=== PATIENT | female | born 1995 | race Hispanic/Latino ===

== ENCOUNTER 2024-01-27 10:22 | Emergency (ER) | payer OTHER ==
[~2024-01-27] VITALS: Ht 149.9 cm; Wt 55.1 kg
[2024-01-27 12:53] LABS: HEMATOCRIT 38.4 % (36.0-47.0); HEMOGLOBIN 11.3 g/dl (12.0-15.5); MEAN CORPUSCULAR HEMOGLOBIN 23.1 pg (27.0-33.0); MEAN CORPUSCULAR HGB CONC 29.4 g/dl (32.0-36.5); MEAN CORPUSCULAR VOLUME 78.5 fl (80.0-96.0); PLATELET COUNT, AUTOMATED 232 10^3/uL (150-450); RED BLOOD COUNT 4.89 10^6/uL (4.00-5.40); WHITE BLOOD COUNT 5.8 10^3/uL (4.0-10.0)
[2024-01-27 13:20] LABS: BLOOD UREA NITROGEN 10 MG/DL (9-23); CARBON DIOXIDE LEVEL 28 MMOL/L (20-31); CHLORIDE LEVEL 110 MMOL/L (98-107); CREATININE FOR GFR 0.54 MG/DL (0.55-1.30); GLOMERULAR FILTRATION RATE > 60.0 (>60); GLUCOSE, FASTING 80 MG/DL (60-100); SODIUM LEVEL 144 MMOL/L (136-145)
[2024-01-27 13:35] LABS: HCG, SERUM QUALITATIVE NEGATIVE (NEGATIVE)
[2024-01-27] MEDS: KETOROLAC 30 MG/ML 1ML VIAL IV ONE (13:50)
[2024-01-27] MEDS: NS 1,000 ML IV ONE (13:50)
[2024-01-27 14:15] VITALS: BP 136/73; TEMP 97.3; O2SAT 100
== END 2024-01-27 14:40 | disposition home or self-care (01) ==
LOC: M ED 10:22
DX: N94.4 Primary dysmenorrhea (principal)
CPT/HCPCS: 80048; 84703; 85027; 86850; 86900; 86901; 96361; 96374; 99284; J1885

== ENCOUNTER 2024-04-16 14:17 | Outpatient (CLI) | payer OTHER ==
[~2024-04-16] VITALS: Ht 149.9 cm; Wt 52.7 kg
[~2024-04-16 14:17] MED LIST: ALBUTEROL SULFATE 2.5MG/0.5ML INH NEB SOLN INH PRN; EPINEPHrine INJ 1 MG/ML 1ML AMP IM PRN; diphenhydrAMINE 50MG/ML VIAL IV PRN; methylPREDNISolone 125MG 2ML VIAL IV PRN
[2024-04-16 14:35] VITALS: BP 133/59; O2SAT 99
[2024-04-16] MEDS ORDERED: NS 1,000 ML IV SCH (15:00)
[2024-04-16] MEDS: IRON SUCROSE 25 MG in NS 23.75 ML IV ONE (15:20)
[2024-04-16] MEDS: IRON SUCROSE 200 MG in NS 100 ML OVER 1 HR IV ONE (16:03)
[2024-04-16 16:07] VITALS: BP 113/70; O2SAT 100
[2024-04-16 17:00] VITALS: BP 119/69; O2SAT 100
[2024-04-16 17:20] VITALS: BP 109/59; O2SAT 100
== END 2024-04-16 17:20 | disposition home or self-care (01) ==
LOC: M INFU 14:17
PROVIDERS: ATTEND Family Medicine
DX: D64.9 Anemia, unspecified (principal); Z91.013 Allergy to seafood
CPT/HCPCS: 96365; J1756

== ENCOUNTER 2024-04-23 15:34 | Outpatient (CLI) | payer OTHER ==
[~2024-04-23] VITALS: Ht 149.9 cm; Wt 52.7 kg
[~2024-04-23 15:34] MED LIST changes: +NS 1,000 ML IV SCH
[2024-04-23 16:05] VITALS: BP 122/58; O2SAT 100
[2024-04-23] MEDS: IRON SUCROSE 200 MG in NS 100 ML OVER 1 HR IV ONE (16:18)
[2024-04-23 17:27] VITALS: BP 112/61; O2SAT 95
== END 2024-04-23 17:30 ==
LOC: M INFU 15:34
PROVIDERS: ATTEND Family Medicine
DX: D64.9 Anemia, unspecified (principal)
CPT/HCPCS: 96365; J1756

== ENCOUNTER → 2024-04-30 | Outpatient (CLI) | payer OTHER ==
[~2024-04-30] VITALS: Ht 149.9 cm; Wt 53.6 kg
[2024-04-30 14:55] VITALS: BP 116/63; O2SAT 100
[2024-04-30] MEDS: IRON SUCROSE 200 MG in NS 100 ML IV ONE (15:49)
[2024-04-30 16:48] VITALS: BP 118/63; O2SAT 100
== END ==
LOC: M INFU 14:37
PROVIDERS: ATTEND Family Medicine
DX: D64.9 Anemia, unspecified (principal)
CPT/HCPCS: 96365; J1756

== ENCOUNTER 2024-08-04 06:17 | Day surgery (SDC) | payer OTHER ==
[~2024-08-04] VITALS: Ht 149.9 cm; Wt 53.6 kg
[~2024-08-04 06:17] MED LIST changes: -ALBUTEROL SULFATE 2.5MG/0.5ML INH NEB SOLN INH PRN; -EPINEPHrine INJ 1 MG/ML 1ML AMP IM PRN; +MECL25CH45 PO; -NS 1,000 ML IV SCH; +VITA100093 PO; -diphenhydrAMINE 50MG/ML VIAL IV PRN; -methylPREDNISolone 125MG 2ML VIAL IV PRN
[2024-08-04] MEDS ORDERED: ONDANSETRON 4MG 2ML VIAL As Ordered ONE (06:56)
[2024-08-04] MEDS ORDERED: ROCURONIUM BROMIDE 50MG/5ML VIAL As Ordered ONE (06:56)
[2024-08-04] MEDS ORDERED: KETOROLAC 60MG 2ML VIAL As Ordered ONE (06:56)
[2024-08-04] MEDS ORDERED: SUGAMMADEX SODIUM 500 MG/5 ML VIAL (BRIDION) As Ordered ONE (06:56)
[2024-08-04] MEDS ORDERED: propofoL 200 MG/20 ML VIAL As Ordered ONE (06:56)
[2024-08-04] MEDS ORDERED: LIDOCAINE 2% 100MG/5ML SDV (FOR ANES.) As Ordered ONE (06:56)
[2024-08-04] MEDS ORDERED: fentaNYL 250 MCG/5 ML INJECTION As Ordered ONE (07:00)
[2024-08-04] MEDS: SCOPOLAMINE 1MG TRANSDERMAL PATCH TOP ONE (07:01)
[2024-08-04] MEDS ORDERED: MIDAZOLAM INJ 2MG/2ML VIAL As Ordered ONE (07:01)
[2024-08-04] MEDS: ACETAMINOPHEN 500 MG TAB PO ONE (07:01)
[2024-08-04 07:07] LABS: HEMATOCRIT 39.2 % (36.0-47.0); HEMOGLOBIN 12.4 g/dl (12.0-15.5); MEAN CORPUSCULAR HEMOGLOBIN 27.4 pg (27.0-33.0); MEAN CORPUSCULAR HGB CONC 31.6 g/dl (32.0-36.5); MEAN CORPUSCULAR VOLUME 86.5 fl (80.0-96.0); PLATELET COUNT, AUTOMATED 204 10^3/uL (150-450); RED BLOOD COUNT 4.53 10^6/uL (4.00-5.40)
[2024-08-04] MEDS: metroNIDAZOLE 500 MG in IV 1 EA IV ONE (07:10)
[2024-08-04] MEDS: ceFAZolin SOD 2 GM in IV 1 EA IV ONE (07:53)
[2024-08-04 07:56] LABS: BLOOD UREA NITROGEN 11 MG/DL (9-23); CALCIUM LEVEL 9.6 MG/DL (8.5-10.1); CARBON DIOXIDE LEVEL 27 MMOL/L (20-31); CHLORIDE LEVEL 109 MMOL/L (98-107); GLOMERULAR FILTRATION RATE > 60.0 (>60); GLUCOSE, FASTING 85 MG/DL (60-100); POTASSIUM SERUM 4.1 MMOL/L (3.5-5.1); SODIUM LEVEL 143 MMOL/L (136-145)
[2024-08-04] MEDS ORDERED: ACETAMINOPHEN 1000MG/100ML IV BAG As Ordered ONE (07:58)
[2024-08-04] MEDS ORDERED: dexmedeTOMIDine (4MCG/ML)200MCG/50ML BTL (PRECEDEX) As Ordered ONE (09:00)
[2024-08-04] MEDS ORDERED: MORPHINE 2 MG/ML 1ML VIAL IV PRN (10:55)
[2024-08-04] MEDS ORDERED: ONDANSETRON 4MG 2ML VIAL IV PRN (10:55)
[2024-08-04] MEDS ORDERED: oxyCODONE 5MG TAB PO PRN (10:55)
[2024-08-04] MEDS: MEPERIDINE 25 MG/ML 1ML VIAL IV PRN (11:50)
[2024-08-04] MEDS: MORPHINE 2 MG/ML 1ML VIAL IV PRN (13:59)
[2024-08-04] MEDS: ONDANSETRON 4MG 2ML VIAL IV PRN (14:00)
[2024-08-04] MEDS ORDERED: fentaNYL 100 MCG/2 ML INJECTION As Ordered ONE (14:15)
[2024-08-04] MEDS: fentaNYL 100 MCG/2 ML INJECTION IV PRN (14:18)
[2024-08-04] MEDS: oxyCODONE 5MG TAB PO PRN (16:01)
[2024-08-04 17:00] VITALS: BP 126/63; TEMP 98; O2SAT 99
== END 2024-08-04 17:26 | disposition home or self-care (01) ==
LOC: M SDC 06:17
PROVIDERS: ATTEND Student in an Organized Health Care Education/Training Program
DX: N93.9 Abnormal uterine and vaginal bleeding, unspecified (principal); N83.12 Corpus luteum cyst of left ovary; N72 Inflammatory disease of cervix uteri; K66.0 Peritoneal adhesions (postprocedural) (postinfection); Z91.013 Allergy to seafood
CPT/HCPCS: 36415; 58571; 80048; 81025; 85027; 86850; 86900; 86901; 87086; 88307; J0131; J0665; J0690; J1100; J1836; J1885; J2175; J2250; J2405; J3010